=== PATIENT | female | born 1965 | race Caucasian/White ===

== ENCOUNTER 2024-05-28 12:51 | Outpatient (RCR) | payer MEDICARE, SELFPAY ==
[2024-05-28 13:11] VITALS: BP 96/65; PULSE 62; RESP 18; TEMP 36.2
== END 2024-05-28 17:12 | disposition home or self-care (01) ==
LOC: WC 12:51
PROVIDERS: PCP Internal Medicine; Visit Provider Nurse Practitioner Family
DX: D49.2 Neoplasm of unspecified behavior of bone, soft tissue, and skin (principal); T20.06XA Burn of unspecified degree of forehead and cheek, initial encounter; X15.8XXA Contact with other hot household appliances, initial encounter; S81.811A Laceration without foreign body, right lower leg, initial encounter; W55.89XA Other contact with other mammals, initial encounter; Z79.83 Long term (current) use of bisphosphonates; Z79.899 Other long term (current) drug therapy; Z80.8 Family history of malignant neoplasm of other organs or systems
CPT/HCPCS: 99203; G0463